=== PATIENT | female | born 2000 | race Caucasian/White ===

== ENCOUNTER 2024-01-01 22:24 | Day surgery (SDC) | payer BC ==
[2024-01-01 23:36] VITALS: BMI 26.6
[2024-01-01] MEDS ORDERED: hydrALAZINE 20 MG/ML VIAL SLOW IVP PRN (23:42)
[2024-01-02] MEDS ORDERED: fentaNYL 50 mcg/mL 1 mL Vial ONE (00:11)
[2024-01-02] MEDS: fentaNYL 50 mcg/mL 1 mL Vial SLOW IVP SCH (00:28)
[2024-01-02] MEDS ORDERED: fentaNYL 50 mcg/mL 1 mL Vial SLOW IVP PRN (02:11)
== END 2024-01-02 02:40 | disposition home or self-care (01) ==
LOC: CSHLD/OP 22:24
PROVIDERS: ATTEND Obstetrics & Gynecology
DX: O47.1 False labor at or after 37 completed weeks of gestation (principal); O00.01 Abdominal pregnancy with intrauterine pregnancy; Z3A.39 39 weeks gestation of pregnancy; Z98.890 Other specified postprocedural states; Z79.899 Other long term (current) drug therapy
CPT/HCPCS: 96372; 99283; J3010

== ENCOUNTER 2024-01-02 06:46 | Inpatient (IN) | payer BC ==
[2024-01-02] MEDS ORDERED: hydrALAZINE 20 MG/ML VIAL SLOW IVP PRN ×2 (07:25→07:26)
[2024-01-02] MEDS ORDERED: fentaNYL 50 mcg/mL 1 mL Vial SLOW IVP PRN (07:25)
[2024-01-02] MEDS ORDERED: Carboprost 250 MCG/ML AMP IM PRN ×2 (07:25→07:26)
[2024-01-02] MEDS ORDERED: Lidocaine 1% (PF) 30 ML VIAL SC PRN ×2 (07:25→07:26)
[2024-01-02] MEDS ORDERED: Diphenoxylate HCl/Atropine Tablet PO PRN ×3 (07:25→07:26)
[2024-01-02] MEDS ORDERED: Misoprostol 200 MCG TAB PR PRN ×2 (07:25→07:26)
[2024-01-02] MEDS ORDERED: Tranexamic Acid 1,000 MG/10 ML VIAL IVP PRN ×2 (07:25→07:26)
[2024-01-02] MEDS ORDERED: Ibuprofen 800 MG TAB PO PRN ×2 (07:25→07:26)
[2024-01-02] MEDS ORDERED: HYDROcodone/Acetaminophen 5/325 mg Tablet PO PRN ×4 (07:25→12:01)
[2024-01-02] MEDS ORDERED: Promethazine HCl 25 MG/ML VIAL IM PRN ×4 (07:25→12:29)
[2024-01-02] MEDS ORDERED: Ondansetron PF 4 MG/2 ML Vial IVP PRN ×4 (07:25→12:29)
[2024-01-02] MEDS ORDERED: Acetaminophen 500 MG TAB PO PRN (07:25)
[2024-01-02] MEDS ORDERED: Methylergonovine 0.2 MG/ML VIAL IM PRN (07:26)
[2024-01-02] MEDS ORDERED: Docusate 100 MG CAP PO PRN (07:26)
[2024-01-02] MEDS ORDERED: Oxytocin 30 units/NS 500 ML 500 ML IV SCH ×4 (07:30)
[2024-01-02] MEDS ORDERED: Lactated Ringer's 1,000 ML IV SCH (07:30)
[2024-01-02 07:41] VITALS: BMI 26.6
[2024-01-02 07:46] LABS: Hematocrit 35.7 % (34.9-44.5); Hemoglobin 12.3 g/dL (12.0-15.5); Mean Corpuscular HGB CONC 34.5 g/dL (32.0-36.0); Mean Corpuscular Hemoglobin 29.9 pg (27.0-33.0); Mean Corpuscular Volume 86.7 fL (81.6-98.3); Mean Platelet Volume 10.7 fL (7.4-10.4); Platelet Count 195 10x3/uL (150-450); RBC Distribution Width 13.4 % (11.5-14.5); Red Blood Cell (RBC) Count 4.12 10x6/uL (3.90-5.03); White Blood Cell (WBC) Count 19.1 10x3/uL (3.5-10.5)
[2024-01-02] MEDS ORDERED: diphenhydrAMINE 50 MG/ML VIAL IVP PRN ×2 (08:21→12:29)
[2024-01-02] MEDS ORDERED: Lactated Ringer's 500 ML IV PRN (08:21)
[2024-01-02] MEDS ORDERED: Acetaminophen 325 MG TAB PO PRN (08:21)
[2024-01-02] MEDS ORDERED: Naloxone HCl 0.4 mg/ml Vial IVP PRN ×4 (08:21→12:29)
[2024-01-02] MEDS ORDERED: Moisturizing Cream (Eucerin) 113 GM JAR TOP PRN ×2 (08:21→12:29)
[2024-01-02] MEDS ORDERED: ePHEDrine Sulfate 50 MG/10 ML VIAL SLOW IVP PRN (08:21)
[2024-01-02] MEDS ORDERED: Communication Order-Pharmacy FS SCH ×2 (08:30→12:30)
[2024-01-02 08:38] LABS: HBsAg Index 0.21 S/CO (0-0.99); Hep B Surf Ag - L&D Non-Reactive S/CO (NonReactive); Syphilis Antibody Nonreactive (Nonreactive); Syphilis Antibody Index 0.09 S/CO (<1.00 Non-Reactive)
[2024-01-02] MEDS: fentaNYL 2 mcg/Ropivacaine 0.2% Epidural 100 ML CADD EPIDURAL SCH (08:59)
[2024-01-02] MEDS: Ondansetron PF 4 MG/2 ML Vial IVP PRN (10:09)
[2024-01-02] MEDS: Methylergonovine 0.2 MG/ML VIAL IM SCH (11:29)
[2024-01-02 11:43] LABS: Analyzer IN Cardio CS NICU; RapidComm Collect By CBN
[2024-01-02 11:46] LABS: Analyzer IN Cardio CS NICU; RapidComm Collect By CBN; pH (Cord, venous) 7.102 (7.250-7.350)
[2024-01-02] MEDS ORDERED: Bupivacaine/Epinephrine 0.25% 30 ML VIAL ONE (12:00)
[2024-01-02] MEDS ORDERED: Simethicone Chewable 80 MG TAB PO PRN (12:01)
[2024-01-02] MEDS: fentaNYL/Ropivacaine Epidural 100 ML ONE (12:28)
[2024-01-02] MEDS: CEFAZOLIN 2 GM VIAL ONE ×3 (12:28→12:32)
[2024-01-02] MEDS: Oxytocin 10 UNITS/ML VIAL ONE ×2 (12:29→12:32)
[2024-01-02] MEDS ORDERED: Morphine 4 MG/ML VIAL SLOW IVP PRN (12:29)
[2024-01-02] MEDS: Lidocaine 2% MPF 10 ML AMP (For Epidural Use) ONE (12:29)
[2024-01-02] MEDS ORDERED: Naloxone HCl 0.4 mg/ml Vial IV PRN (12:29)
[2024-01-02] MEDS: Azithromycin 500 MG VIAL ONE (12:31)
[2024-01-02] MEDS: PHENYLEPHRINE-NS 100 MCG/ML 10 ML SYRINGE ONE (12:31)
[2024-01-02] MEDS: PROPOFOL 20 ML ONE ×2 (12:31)
[2024-01-02] MEDS: Midazolam HCl 2 mg/2 ml Vial ONE (12:31)
[2024-01-02] MEDS: Ondansetron PF 4 MG/2 ML Vial ONE (12:32)
[2024-01-02] MEDS: Morphine PF 10 MG/10 ML VIAL ONE (12:32)
[2024-01-02] MEDS: fentaNYL 50 mcg/mL 1 mL Vial SLOW IVP PRN (13:24)
[2024-01-02] MEDS ORDERED: Methylergonovine 0.2 MG/ML VIAL IM SCH (13:30)
[2024-01-02] MEDS: Ketorolac Tromethamine 30 MG (1 mL) VIAL IVP SCH (13:49)
[2024-01-02] MEDS: fentaNYL 50 mcg/mL 1 mL Vial ONE (14:13)
[2024-01-02] MEDS: Meperidine HCl/PF 25 MG (1 mL) VIAL SLOW IVP PRN (15:03)
[2024-01-02] MEDS: Lactated Ringer's 1,000 ML IV SCH (18:25)
[2024-01-02] MEDS: Boostrix 0.5 ML (Tdap) VIAL (>/=7 yrs of age) IM ONE (18:25)
[2024-01-02] MEDS: Acetaminophen 325 MG TAB PO SCH ×2 (18:26→18:28)
[2024-01-02] MEDS: Ketorolac Tromethamine 30 MG (1 mL) VIAL IVP PRN (19:42)
[2024-01-02] MEDS: Docusate 100 MG CAP PO SCH (19:42)
[2024-01-03 04:51] LABS: Hematocrit 26.6 % (34.9-44.5); Mean Corpuscular HGB CONC 33.8 g/dL (32.0-36.0); Mean Corpuscular Hemoglobin 30.2 pg (27.0-33.0); Mean Corpuscular Volume 89.3 fL (81.6-98.3); Mean Platelet Volume 10.6 fL (7.4-10.4); Platelet Count 127 10x3/uL (150-450); RBC Distribution Width 13.7 % (11.5-14.5); Red Blood Cell (RBC) Count 2.98 10x6/uL (3.90-5.03); White Blood Cell (WBC) Count 12.9 10x3/uL (3.5-10.5)
[2024-01-03] MEDS: Ferrous Sulfate 325 MG TAB PO SCH (08:31)
[2024-01-03] MEDS: HYDROcodone/Acetaminophen 5/325 mg Tablet PO PRN (08:31)
[2024-01-03] MEDS: Ibuprofen 800 MG TAB PO SCH (21:59)
[2024-01-04] MEDS: HYDROcodone/Acetaminophen 5/325 mg Tablet PO PRN (06:03)
[2024-01-04 07:42] VITALS: BP 107/61; TEMP 98.5
== END 2024-01-04 14:29 | disposition home or self-care (01) | DRG 788 ==
LOC: CSHLD/OP 06:46 → CSHLD 07:19 → CSHPP 18:00
PROVIDERS: ADMIT Obstetrics & Gynecology; ATTEND Obstetrics & Gynecology
PROC: 10D00Z1 Extraction of Products of Conception, Low, Open Approach (ICD-10-PCS; principal; 2024-01-02)
PROC: 4A033R1 Measurement of Arterial Saturation, Peripheral, Percutaneous Approach (ICD-10-PCS; 2024-01-02)
DX: O76 Abnormality in fetal heart rate and rhythm complicating labor and delivery (principal); Z3A.39 39 weeks gestation of pregnancy; Z37.0 Single live birth; O77.0 Labor and delivery complicated by meconium in amniotic fluid
CPT/HCPCS: 36415; 51702; 72170; 82805; 85027; 86780; 86850; 86900; 86901; 87340; 88307; 99285; J1800; J1885; J2175; J2210; J2250; J2274; J2405; J2590; J2704; J3010; J7120